=== PATIENT | female | born 1945 | race Caucasian/White ===

== ENCOUNTER → 2021-10-13 15:02 | Outpatient (CLI) | payer MEDICARE, SELFPAY ==
--- NOTE | 2021-10-13 15:37 | XR_ITS ---
FINAL REPORT CLINICAL HISTORY: WEIGHT LOSS, SOB, WEAKNESS COUGH, TOBACCO ABUSE FINDINGS: TWO-VIEW CHEST The heart size is normal. The mediastinum is normal. The lungs are hyperinflated consistent with COPD. There is mild scarring. There is no pneumothorax. IMPRESSION: COPD. Reviewed, Interpreted and Dictated by Jed Reeves III, MD Transcribed by June Pang Authenticated and . [facility]
[2021-10-13 16:09] LABS: Basophils # 0.1 K/mm3 (0-0.2); Basophils % 0.6 % (0.1-2.0); Eosinophils # 0.1 K/mm3 (0.0-0.4); Eosinophils % 1.2 % (0.1-12.0); Hematocrit 39.5 % (37.0-47.0); Hemoglobin 13.2 g/dL (12.2-16.2); Lymphocytes # 2.7 K/mm3 (0.7-4.5); Lymphocytes % 23.9 % (10-50); Mean Corpuscular HGB Conc 33.5 g/dL (31.8-35.4); Mean Corpuscular Hemoglobin 31.9 pg (27.0-31.2); Mean Corpuscular Volume 95.2 fl (81-99); Mean Platelet Volume 8.7 fl (7.4-10.4); Monocytes # 0.8 K/mm3 (0.1-1.0); Monocytes % 7.3 % (1.7-9.3); Neutrophils # 7.7 K/mm3 (1.8-7.8); Neutrophils % 67.1 % (37.0-80.0); Platelet Count 327 K/mm3 (142-424); Red Blood Count 4.14 M/mm3 (4.20-5.40); Red Cell Distribution Width 12.9 % (11.5-17.5); White Blood Count 11.5 K/mm3 (4.8-10.8)
[2021-10-13 16:18] LABS: Hemoglobin A1C 4.8 % (4.0-6.0)
[2021-10-13 17:00] LABS: Alanine Aminotransferase 10 U/L (12-78); Albumin Level 3.2 g/dl (3.5-5.0); Alkaline Phosphatase 78 U/L (38-126); Anion Gap 12.2 mEq/L (5-15); Aspartate Amino Transferase 23 U/L (14-36); Bilirubin,Total 0.6 mg/dl (0.2-1.3); Blood Urea Nitrogen 15 mg/dl (7-17); Carbon Dioxide 27 mmol/L (22.0-30.0); Chloride 99 mmol/L (98-107); Estimated Glomerular Filt Rate 70 ml/min (>60); GFR (African American) 85 ML/MIN (>60); Globulin 3.3 g/dL (1.3-3.2); Glucose 94 mg/dl (74-100); Potassium 4.2 mmoL/L (3.5-5.1); Sodium 134 mmol/L (136-145); Total Protein,Serum 6.5 g/dl (6.3-8.2)
[2021-10-13 17:06] LABS: C-Reactive Protein 34.8 mg/L (0-4)
[2021-10-13 17:07] LABS: D-Dimer 0.95 ug/mL (0.0-0.5)
[2021-10-13 17:31] LABS: Thyroid Stimulating Hormone 1.33 uIU/mL (0.465-4.68)
== END ==
LOC: LAB 15:09
PROVIDERS: PCP Nurse Practitioner Family; Visit Provider Family Medicine
DX: R06.02 Shortness of breath (principal); R05.9 Cough, unspecified; R63.4 Abnormal weight loss; R53.1 Weakness; Z72.0 Tobacco use; Z79.899 Other long term (current) drug therapy
CPT/HCPCS: 36415; 71046; 80053; 83036; 84443; 85025; 85378; 86140

== ENCOUNTER 2021-10-14 15:27 | Emergency (ER) | payer MEDICARE, SELFPAY ==
[2021-10-14] VITALS (7 sets, daily range): BP systolic 107–183; BP diastolic 70–91; PULSE 76–85; RESP 16–23; TEMP 36.6–37.1; O2SAT 95–98; BMI 18.6
[2021-10-14 16:22] LABS: Basophils % 0.3 % (0.1-2.0); Eosinophils # 0.1 K/mm3 (0.0-0.4); Eosinophils % 0.6 % (0.1-12.0); Hematocrit 37.2 % (37.0-47.0); Hemoglobin 12.7 g/dL (12.2-16.2); Lymphocytes # 2.5 K/mm3 (0.7-4.5); Lymphocytes % 25.2 % (10-50); Mean Corpuscular HGB Conc 34.3 g/dL (31.8-35.4); Mean Corpuscular Hemoglobin 32.6 pg (27.0-31.2); Mean Corpuscular Volume 95.2 fl (81-99); Mean Platelet Volume 8.5 fl (7.4-10.4); Monocytes # 0.7 K/mm3 (0.1-1.0); Monocytes % 6.5 % (1.7-9.3); Neutrophils # 6.7 K/mm3 (1.8-7.8); Neutrophils % 67.3 % (37.0-80.0); Platelet Count 318 K/mm3 (142-424); Red Blood Count 3.91 M/mm3 (4.20-5.40); Red Cell Distribution Width 12.6 % (11.5-17.5)
--- NOTE | 2021-10-14 16:25 | HMH.EDGENADL ---
ED Disposition Clinical Impression: Mucus plugging of bronchi Pneumonia Qualifiers: Pneumonia type: due to unspecified organism Laterality: left Lung location: lower lobe of lung Qualified Code(s): J18.9 - Pneumonia, unspecified organism COPD (chronic obstructive pulmonary disease) Qualifiers: COPD type: emphysema Emphysema type: unspecified Qualified Code(s): J43.9 - Emphysema, unspecified Disposition: Home, Self-Care Condition on Discharge: Good Instructions: DI for Chronic Obstructive Pulmonary Disease, DI for Pneumonia -- Adult Additional Instructions: Follow-up with primary care provider next week in the office. Additional instructions for PNEUMONIA: Take antibiotics as prescribed. See your physician as soon as possible for further evaluation. Return immediately if you have an uncontrollable fever greater than 102 degrees, difficulty breathing or shortness of breath, persistent vomiting, or severe chest pain. Prescriptions: levoFLOXacin [Levaquin 500mg tab] 500 mg PO DAILY #9 tab Transmission Status: Pending to [id number] Referrals: Wayne Polanco MD [Primary Care Provider] - - Critical Care Critical Care Time: No Attestation: On 10/14/21, the high probability of a clinically significant, sudden or life threatening deterioration of the following system(s) required my full and direct attention, intervention and personal management. The time I documented below is in addition to time spent performing reported procedures but includes the following listed in this critical care notation. Medical Decision Making - Medical Records Medical records reviewed: Yes: I reviewed the patient's medical records. MR Comment: Reviewed outpatient chest x-ray result, interpreted as COPD. - Chirag Inquiry Pt receiving controlled substance: No Vital Signs: 10/14/21 15:30 10/14/21 16:00 10/14/21 16:31 Temperature 98.7 F Temperature Source Oral Pulse Rate 79 85 Pulse Rate [Radial] 84 Respiratory Rate 20 20 23 Blood Pressure 107/70 L 161/85 H Blood Pressure [Right Arm] 143/75 H Blood Pressure Mean 82 110 Blood Pressure Mean [Right Arm] 97 Blood Pressure Position [Right Arm] Sitting 02 Sat by Pulse Oximetry 98 96 95 Oxygen Delivery Method Room Air Room Air Room Air 10/14/21 17:15 10/14/21 17:30 10/14/21 18:00 Temperature Temperature Source Pulse Rate 78 76 77 Pulse Rate [Radial] Respiratory Rate 23 22 23 Blood Pressure 166/86 H 168/86 H 183/91 H Blood Pressure [Right Arm] Blood Pressure Mean 106 Blood Pressure Mean [Right Arm] Blood Pressure Position [Right Arm] 02 Sat by Pulse Oximetry 97 98 96 Oxygen Delivery Method - Lab Data Lab Results 10/14/21 16:05: WBC 10.0, RBC 3.91 L, Hgb 12.7, Hct 37.2, MCV 95.2, MCH 32.6 H, MCHC 34.3, RDW 12.6, Plt Count 318, MPV 8.5, Neut % (Auto) 67.3, Lymph % (Auto) 25.2, [place] % (Auto) 6.5, Eos % (Auto) 0.6, Baso % (Auto) 0.3, Neut # (Auto) 6.7, Lymph # (Auto) 2.5, [place] # (Auto) 0.7, Eos # (Auto) 0.1, Baso # (Auto) 0.0 10/14/21 16:05: Sodium 132 L, Potassium 3.7, Chloride 98, Carbon Dioxide 28, Anion Gap 9.7, BUN 16, Creatinine 0.90, Estimated Creat Clear 40, Estimated GFR 61, Est GFR ( Amer) 74, Glucose 108 H, Calcium 8.9, Total Bilirubin 0.7, AST 23, ALT 12, Alkaline Phosphatase 83, Troponin I < 0.01, Total Protein 7.0, Albumin 3.4 L, Globulin 3.6 H, Albumin/Globulin Ratio 0.9 L 10/14/21 16:05: NT-Pro-B Natriuret Pep 881 H Result diagrams: 10/14/21 16:05 10/14/21 16:05 Orders (Tests/Meds): ED MEDICATIONS Discontinued Medications Generic Name Dose Route Start Last Admin Trade Name Freq PRN Reason Stop Dose Admin Diphenhydramine HCl 25 mg 10/14/21 16:40 10/14/21 16:47 Diphenhydramine 50mg/Ml Vial IV 10/14/21 16:41 25 mg ONCE ONE Administration Iopamidol 70 ml 10/14/21 17:04 10/14/21 17:05 Iopamidol-370 (76%);100ml Bottle IV 10/14/21 17:05 70 ml ONCE ONE Administration Me
--- NOTE | 2021-10-14 16:27 | CT_ITS ---
PROCEDURE INFORMATION: Exam: CTA Chest With Contrast Exam date and time: 10/14/2021 4:29 PM Age: 76 years old Clinical indication: Shortness of breath; Additional info: SOB TECHNIQUE: Imaging protocol: Computed tomographic angiography of the chest with contrast. 3D rendering (Not supervised by radiologist): MIP and/or 3D reconstructed images were created by the technologist. Radiation optimization: All CT scans at this facility use at least one of these dose optimization techniques: automated exposure control; mA and/or kV adjustment per patient size (includes targeted exams where dose is matched to clinical indication); or iterative reconstruction. Contrast material: ISOVUE 370; Contrast volume: 70 ml; Contrast route: INTRAVENOUS (IV); COMPARISON: CR XR CHEST 2V 10/13/2021 3:44 PM FINDINGS: Pulmonary arteries: Pulmonary arteries normal in course and caliber. No pulmonary emboli. Aorta: The aorta demonstrates mild atherosclerotic calcification. No acute pathology in the aorta. Trachea: Remainder of the airways are patent. Lungs: There are multiple punctate pulmonary parenchymal calcifications, consistent with remote granulomatous organism exposure. Severe centrilobular emphysematous changes are present. COPD related lung changes. Multi segmental mucoid impaction in the bilateral lower lobe proximal through distal segmental bronchi, worse in the left lower lobe. Bilateral segmental bronchial wall thickening. Patchy and tree-in-bud airspace opacities in the left lower lobe. Remainder of the lungs are clear. No suspicious pulmonary nodules. Pleural spaces: Pleural calcification in the left lung base. No pleural effusion or pneumothorax. Heart: There is calcification of the aortic valve annulus. There is mild atherosclerotic calcification of the coronary arteries. Heart is of normal size and morphology. No pericardial thickening or effusion. Lymph nodes: Unremarkable. No enlarged lymph nodes. Diaphragm: A small hiatal hernia is present. Spleen: The spleen demonstrates punctate calcifications, consistent with remote granulomatous organism exposure. Intraperitoneal space: The visualized intra-abdominal structures demonstrate no acute findings. Bones/joints: Right 11th rib osteotomy or congenital defect. No acute skeletal pathology. Severe multilevel degenerative changes of the spine, as manifested by multilevel anterior osteophytes and multilevel decrease in intervertebral disc space. Soft tissues: No acute body wall soft tissue findings. IMPRESSION: 1. No pulmonary emboli. 2. Bilateral severe multi segmental mucoid impaction in the lower lobe segmental bronchi, worse on the left side. There is associated moderate left lower lobe pneumonia. Aspiration pneumonia should be entertained. 3. Severe COPD/emphysema. 4. Incidental findings as above.
[2021-10-14 16:32] LABS: Alanine Aminotransferase 12 U/L (12-78); Albumin Level 3.4 g/dl (3.5-5.0); Albumin/Globulin Ratio 0.9 (1.1-1.8); Alkaline Phosphatase 83 U/L (38-126); Anion Gap 9.7 mEq/L (5-15); Aspartate Amino Transferase 23 U/L (14-36); Bilirubin,Total 0.7 mg/dl (0.2-1.3); Blood Urea Nitrogen 16 mg/dl (7-17); Calcium 8.9 mg/dl (8.4-10.2); Carbon Dioxide 28 mmol/L (22.0-30.0); Chloride 98 mmol/L (98-107); Creatinine Clearance Estimated 40 mL/min (50-200); Estimated Glomerular Filt Rate 61 ml/min (>60); GFR (African American) 74 ML/MIN (>60); Globulin 3.6 g/dL (1.3-3.2); Glucose 108 mg/dl (74-100); Potassium 3.7 mmoL/L (3.5-5.1); Sodium 132 mmol/L (136-145)
--- NOTE | 2021-10-14 16:43 | ECG_ITS ---
APPROVED REPORT Exam: Resting ECG HR:78 bpm ECG Measurements Heart Rate 78 AXES OK 147 P 87 QRSd 85 QRS -45 QT 383 T 62 QTc 417 Conclusion SINUS RHYTHM Bi atrial abnormality LAFB Late r wave progression ABNORMAL ECG UNCONFIRMED REPORT Electronically signed by : Efren Connor MD 10/15/2021 21:39:48
--- NOTE | 2021-10-14 16:47 | PC.NURSE ---
Rounded on patient; obtained on EKG and repositioned patient in bed so that she was more comfortable
[2021-10-14 16:49] LABS: Troponin I < 0.01 ng/ml (0.00-0.034)
[2021-10-14 16:56] LABS: NT Pro Brain Natriuretic Pep. 881 pg/mL (0-125)
== END 2021-10-14 18:40 | disposition home or self-care (01) ==
PROVIDERS: Emergency Provider Emergency Medicine; PCP Family Medicine
DX: J18.9 Pneumonia, unspecified organism (principal); J43.9 Emphysema, unspecified; R79.1 Abnormal coagulation profile; R53.1 Weakness; R94.31 Abnormal electrocardiogram [ECG] [EKG]; F17.210 Nicotine dependence, cigarettes, uncomplicated; Z79.51 Long term (current) use of inhaled steroids; Z91.041 Radiographic dye allergy status; Z91.013 Allergy to seafood
CPT/HCPCS: 71275; 80053; 83880; 84484; 85025; 93005; 96374; 96375; 99285; Q9967

== ENCOUNTER → 2022-01-17 12:41 | Outpatient (CLI) | payer MEDICARE, SELFPAY ==
[2022-01-17 13:30] VITALS: PULSE 61; PULSE 66
--- NOTE | 2022-01-17 14:27 | CT_ITS ---
FINAL REPORT TECHNIQUE: Axial images were obtained from the lung apex to the mid abdomen by computed tomography. Coronal reformatted images were obtained. This study was performed with techniques to keep radiation doses as low as reasonably achievable, (ALARA). Individualized dose reduction techniques using automated exposure control or adjustment of mA and/or kV according to the patient''s size were employed. CLINICAL HISTORY: PNM F/U COMPARISON: 10/14/2021 FINDINGS: There is no axillary adenopathy. There is no hilar or mediastinal adenopathy. Heart size is normal. There are moderate coronary artery calcifications. There is no pericardial or pleural effusion. Limited images of the upper abdomen are unremarkable. On the lung window images, there are severe changes of emphysema with mild pulmonary scarring. There are several calcified granulomas. There has been interval resolution of the left lung base opacities. No new pulmonary abnormality is identified. IMPRESSION: Interval resolution of left lung base opacities. No new pulmonary abnormality is identified. Reviewed, Interpreted and Dictated by Jed Reeves III, MD Transcribed by Dina Mistry Authenticated and [facility]
== END ==
LOC: RT 12:42
PROVIDERS: PCP Family Medicine; Visit Provider Internal Medicine Pulmonary Disease
DX: J47.9 Bronchiectasis, uncomplicated (principal)
CPT/HCPCS: 71250; 94060; 94618; 94640; 94726; 94729

== ENCOUNTER 2022-05-11 09:54 | Emergency (ER) | payer MEDICARE, SELFPAY ==
[2022-05-11] VITALS (24 sets, daily range): BP systolic 0–165; BP diastolic 0–98; PULSE 0–160; RESP 0–33; TEMP -17.7–36.4; O2SAT 0–92; BMI 18.3
--- NOTE | 2022-05-11 10:04 | ECG_ITS ---
APPROVED REPORT Exam: Resting ECG HR:137 bpm ECG Measurements Heart Rate 137 AXES [place] 124 P 88 QRSd 82 QRS -48 QT 329 T 75 QTc 409 Conclusion SINUS TACHYCARDIA POSSIBLE RIGHT VENTRICULAR CONDUCTION DELAY [RSR (QR) IN V1/V2] LEFT ANTERIOR FASCICULAR BLOCK [QRS AXIS <= -45, QR IN I, RS IN II] NONSPECIFIC ST & T-WAVE ABNORMALITY ABNORMAL ECG UNCONFIRMED REPORT Electronically signed by : Efren Connor MD 05/12/2022 08:58:49
--- NOTE | 2022-05-11 10:07 | HMH.EDGENADL ---
Discharge Plan Disposition Patient Disposition: Condition: Critical Date/Time: 05/11/22 02:12 Clinical Impressions Clinical Impression: Septic shock, Pneumonia, Acute respiratory failure with hypoxia, JOSE (acute kidney injury) Discharge ED Provider: Cyril Aranda General Adult HPI General Chief complaint: Shortness of Breath/Dyspnea Stated complaint: SOB Time Seen by Provider: 05/11/22 09:55 History of Present Illness HPI narrative: The patient is brought in by ambulance. She complains of shortness of breath for couple of days, worse today. She has a cough producing clear sputum. She had a fever 1 day. She has chest pain in the center and left side of her chest. She has had small amount of vomiting, no diarrhea, no abdominal pain. She says her daughter, with whom she lives, was sick over the weekend, no specific diagnosis. Patient has COPD, she is not on oxygen at home. She does use a nebulizer. She is a former smoker. EMS reports that the patient's pulse ox was in the 60s on room air on their arrival. They gave her a DuoNeb treatment and put her on oxygen and she was in the 90s afterwards. She says she feels somewhat better on oxygen. Related Data Home Medications Medication Instructions Recorded Confirmed albuterol sulfate 90 mcg/actuation 2 puff inhalation Q6H PRN 11/01/21 01/17/22 aerosol inhaler (Ventolin HFA) lisinopril 40 mg tablet 40 mg PO DAILY 11/01/21 01/17/22 propranolol 40 mg tablet 40 mg PO ONCE 11/01/21 01/17/22 Previous Rx's Medication Instructions Recorded albuterol sulfate 90 mcg/actuation 2 inh inhalation QID PRN shortness 11/01/21 aerosol inhaler of breath or wheezing 90 days #8.5 grams ipratropium 0.5 mg-albuterol 3 mg 3 ml inhalation QID PRN shortness 11/01/21 (2.5 mg base)/3 mL nebulization of breath or wheezing 90 days #360 soln mL umeclidinium 62.5 mcg-vilanterol 1 inh inhalation DAILY 90 days 01/17/22 25 mcg/actuation powdr for #180 ea inhalation (Anoro Ellipta) Allergies Allergy/AdvReac Type Severity Reaction Status Date / Time Iodinated Contrast Media Allergy Unknown Unknown Verified 05/11/22 13:09 [IODINATED CONTRAST MEDIA - allergy IV DYE] reaction shellfish derived Allergy Unknown S-DROP IN Verified 01/17/22 15:34 [From SHELLFISH (FOOD/DRUG)] B/P [facility] Disclaimer: The information contained in this section may have been updated after the patient was seen, as this information can be updated by other users. Medical History Acute respiratory failure with hypoxia Atypical pneumonia COPD mixed type Dyspnea on exertion History of 2019 novel coronavirus disease (COVID-19) Mucus plugging of bronchi On mechanically assisted ventilation Pneumonia Pneumonia Pulmonary emphysema Septic shock Smoking greater than 30 pack years Surgical History (Updated 01/17/22 @ 15:39 by Kavitha Guzman) History of kidney donation Family History Father Lung cancer Mother Lung cancer Social History Smoking Status: Former smoker smoking status stop date: 10/2021 alcohol intake: never current occupational status: retired Travel in the last 8 weeks: None ROS Obtained: Yes Systems reviewed as appropriate & no additional complaints except as documented Constitutional Constitutional: Reports fever(s) and Denies weakness Cardiovascular Cardiovascular: Reports chest pain Respiratory Respiratory: Reports shortness of breath and Reports cough Gastrointestinal Gastrointestingal: Reports vomiting; Denies abdominal pain, constipation or diarrhea Genitourinary Female Genitourinary: Denies difficulty voiding, Denies dysuria and Denies flank pain Musculoskeletal Musculoskeletal: Denies numbness Neurologic Neurologic: Denies numbness and Denies weakness Physical Exam General General appearance: alert and in distress (dyspneic, mildly labore
--- NOTE | 2022-05-11 10:07 | PC.NURSE ---
called RT for abg and suctioning
--- NOTE | 2022-05-11 10:11 | XR_ITS ---
FINAL REPORT CLINICAL HISTORY: SOA, Lt sided CP x 2 days. Hx of COPD, former smoker. COMPARISON: 10/13/2021 FINDINGS: A single PA view of the chest was obtained. The cardiac and mediastinal silhouettes are within normal limits. There is been interval development of airspace disease in the left lung which is most consistent with pneumonia. There is a new a mass like opacity in the right hilar region. This could also be infectious or inflammatory but a mass is not excluded. There is underlying emphysema. There is no effusion or pneumothorax. No acute osseous abnormality is identified. IMPRESSION: 1. New left lung pneumonia. Recommend follow-up to resolution. 2. New right hilar mass like opacity, could also be pneumonia but mass or lymphadenopathy is not excluded. Consider chest CT. Reviewed, Interpreted and Dictated by Rosio Bermudez MD Transcribed by Dina Mistry Authenticated and [facility]
[2022-05-11 10:21] LABS: Basophils % 0.8 % (0.1-2.0); Eosinophils % 0.1 % (0.1-12.0); Hematocrit 46.1 % (37.0-47.0); Hemoglobin 15.5 g/dL (12.2-16.2); Lymphocytes # 0.7 K/mm3 (0.7-4.5); Lymphocytes % 14.8 % (10-50); Mean Corpuscular HGB Conc 33.7 g/dL (31.8-35.4); Mean Corpuscular Hemoglobin 32.2 pg (27.0-31.2); Mean Corpuscular Volume 95.6 fl (81-99); Mean Platelet Volume 10.3 fl (7.4-10.4); Monocytes # 0.2 K/mm3 (0.1-1.0); Monocytes % 4.3 % (1.7-9.3); Neutrophils # 3.9 K/mm3 (1.8-7.8); Platelet Count 273 K/mm3 (142-424); Red Blood Count 4.83 M/mm3 (4.20-5.40); Red Cell Distribution Width 13.8 % (11.5-17.5); White Blood Count 4.9 K/mm3 (4.8-10.8)
--- NOTE | 2022-05-11 10:25 | PC.NURSE ---
RT at BS
[2022-05-11 10:35] LABS: Coronavirus 19, PCR Not Detected (NotDetected); Influenza A, PCR Not Detected (NotDetected); Influenza B, PCR Not Detected (NotDetected)
[2022-05-11 10:36] LABS: Chloride 103 mmol/L (98-107); Potassium 4.2 mmoL/L (3.5-5.1); Sodium 142 mmol/L (136-145)
[2022-05-11 10:38] LABS: ABG Base Excess -14.7 mmol/L (-2.4-2.3); ABG HCO3 14.5 mmhg (22.0-26.0); ABG Oxygen Saturation 82 % (90-100); ABG PCO2 44.9 mmhg (35.0-45.0); ABG PO2 59.5 mmhg (80-100); ABG TCO2 15.9 mmhg (23-27)
--- NOTE | 2022-05-11 10:38 | PC.NURSE ---
respiratory notified to place pt on bi-pap
[2022-05-11 10:39] LABS: Alanine Aminotransferase 27 U/L (12-78); Albumin Level 3.6 g/dl (3.5-5.0); Albumin/Globulin Ratio 0.9 (1.1-1.8); Alkaline Phosphatase 92 U/L (38-126); Anion Gap 23.2 mEq/L (5-15); Aspartate Amino Transferase 38 U/L (14-36); Bilirubin,Total 2.1 mg/dl (0.2-1.3); Blood Urea Nitrogen 57 mg/dl (7-17); Calcium 9.1 mg/dl (8.4-10.2); Carbon Dioxide 20 mmol/L (22.0-30.0); Creatinine Clearance Estimated 12 mL/min (50-200); Estimated Glomerular Filt Rate 14 ml/min (>60); GFR (African American) 17 ML/MIN (>60); Globulin 4.1 g/dL (1.3-3.2); Glucose 56 mg/dl (74-100); Total Protein,Serum 7.7 g/dl (6.3-8.2)
[2022-05-11 10:39] LABS: Oxygen 100 %; Source R BRACHIAL
[2022-05-11 10:41] LABS: ABG PH 7.13 mmol/L (7.35-7.45)
--- NOTE | 2022-05-11 10:41 | PC.NURSE ---
Yaz from respiratory called pH 7.13 CO2-44.9 Lactic-7.5 Pari from lab called Lactic Acid 4.5 Both were repeated and confirmed.
[2022-05-11 10:42] LABS: Lactic Acid 4.5 mmol/L (0.7-2.1)
--- NOTE | 2022-05-11 10:43 | PC.NURSE ---
RT gave abg results to PIPPA GERARD at this time, PIPPA GERARD states to RT to place pt on vapotherm
--- NOTE | 2022-05-11 10:44 | PC.NURSE ---
RT at bedside. Daughter at bedside.
[2022-05-11 10:48] LABS: NT Pro Brain Natriuretic Pep. 12700 pg/mL (0-125)
--- NOTE | 2022-05-11 10:48 | PC.NURSE ---
notified dr. clemons's office of consult on pt per ER MD request.
--- NOTE | 2022-05-11 10:57 | EXP.PULM.CON ---
History of Present Illness History of present illness: 76-year-old female current smoker greater than [id number] smoking history moderate COPD on triple inhaler therapy was presented hospital with worsening respiratory status found to be hypoxic needing high flow Pulmonary was consulted. [facility] Disclaimer: The information contained in this section may have been updated after the patient was seen, as this information can be updated by other users. Medical History Acute respiratory failure with hypoxia Atypical pneumonia COPD mixed type Dyspnea on exertion History of 2019 novel coronavirus disease (COVID-19) Mucus plugging of bronchi On mechanically assisted ventilation Pneumonia Pneumonia Pulmonary emphysema Septic shock Smoking greater than 30 pack years Surgical History (Updated 01/17/22 @ 15:39 by Kavitha Guzman) History of kidney donation Family History Father Lung cancer Mother Lung cancer Social History Smoking Status: Former smoker smoking status stop date: 10/2021 alcohol intake: never current occupational status: retired Travel in the last 8 weeks: None Review of Systems Review of Systems Review of systems:: unable to obtain Review of systems (narrative): Patient obtunded on BiPAP, interval intubated and sedated Pulmonology Exam Inpatient Vital signs and Labs for Last 24 Hours: Temp Pulse Resp BP Pulse Ox 97.6 F 134 H 21 141/83 H 90 L 05/11/22 10:08 05/11/22 10:08 05/11/22 10:08 05/11/22 10:08 05/11/22 10:08 Laboratory Results - last 24 hr 05/11/22 10:00: Lactate 4.5 H 05/11/22 10:00: WBC 4.9, RBC 4.83, Hgb 15.5, Hct 46.1, MCV 95.6, MCH 32.2 H, MCHC 33.7, RDW 13.8, Plt Count 273, MPV 10.3, Neut % (Auto) 80.0, Lymph % (Auto) 14.8, [place] % (Auto) 4.3, Eos % (Auto) 0.1, Baso % (Auto) 0.8, Neut # (Auto) 3.9, Lymph # (Auto) 0.7, [place] # (Auto) 0.2, Eos # (Auto) 0.0, Baso # (Auto) 0.0 05/11/22 10:00: Sodium 142, Potassium 4.2, Chloride 103, Carbon Dioxide 20 L, Anion Gap 23.2 H, BUN 57 H, Creatinine 3.20 H, Estimated Creat Clear 12, Estimated GFR 14 L*, Est GFR ( Amer) 17 L*, Glucose 56 L, Calcium 9.1, Total Bilirubin 2.1 H, AST 38 H, ALT 27, Alkaline Phosphatase 92, Total Protein 7.7, Albumin 3.6, Globulin 4.1 H, Albumin/Globulin Ratio 0.9 L 05/11/22 10:15: Specimen Source R brachial, O2 % 100, ABG pH 7.13 L*, ABG pCO2 44.9, ABG pO2 59.5 L, ABG HCO3 14.5 L, ABG Total CO2 15.9 L, ABG O2 Saturation 82 L*, ABG Base Excess -14.7 L I & O for Labs for Last 24 Hours: Intake & Output 05/08/22 05/09/22 05/10/22 05/11/22 23:59 23:59 23:59 23:59 Weight 110 lb Constitutional: Present severe distress Comment:: Intubated and Sedated Head: Present normocephalic and atraumatic ENT: Present normal exam Neck: Present normal inspection and trachea midline Respiratory: Present patient mechanically ventilated, rhonchi and wheezes Cardiac: Present S1/S2 and Tachycardia GI: Present soft; Absent distention or tenderness Rectal (female): Present deferred (female): Present deferred Skin: Present intact, cyanosis, dry, pallor and mottling Neuro: Absent alert, awake or oriented x 3 Comment:: Intubated and sedated Extremities: Present cyanosis; Absent normal inspection, edema or clubbing Psychiatric: Present unable to assess Meds Home Medications and Allergies Home Medications Medication Instructions Recorded Confirmed Type albuterol sulfate 90 mcg/actuation 2 inh inhalation QID PRN shortness 11/01/21 01/17/22 Rx aerosol inhaler of breath or wheezing 90 days #8.5 grams albuterol sulfate 90 mcg/actuation 2 puff inhalation Q6H PRN 11/01/21 01/17/22 History aerosol inhaler (Ventolin HFA) ipratropium 0.5 mg-albuterol 3 mg 3 ml inhalation QID PRN shortness 11/01/21 01/17/22 Rx (2.5 mg base)/3 mL nebulization of breath or wheezing 90 days #360 soln mL lisinopril 40 mg tablet
--- NOTE | 2022-05-11 10:59 | ECG_ITS ---
APPROVED REPORT Exam: Resting ECG HR:117 bpm ECG Measurements Heart Rate 117 AXES [place] 99 P 81 QRSd 86 QRS -52 QT 333 T 100 QTc 402 Conclusion SINUS TACHYCARDIA WITH SHORT CO INTERVAL WITH OCCASIONAL ECTOPIC PREMATURE COMPLEXES POSSIBLE RIGHT ATRIAL ENLARGEMENT [0.25mV P-WAVE] POSSIBLE RIGHT VENTRICULAR CONDUCTION DELAY [RSR (QR) IN V1/V2] LEFT ANTERIOR FASCICULAR BLOCK [QRS AXIS <= -45, QR IN I, RS IN II] ST DEVIATION AND MODERATE T-WAVE ABNORMALITY, CONSIDER LATERAL ISCHEMIA [-0.1+ mV T-WAVE IN I/aVL/V5/V6] ABNORMAL ECG UNCONFIRMED REPORT Electronically signed by : Efren Connor MD 05/12/2022 08:58:34
--- NOTE | 2022-05-11 11:07 | PC.NURSE ---
RT switching pt to bipap r/t no improvement on vapotherm
[2022-05-11 11:08] LABS: Troponin I < 0.01 ng/ml (0.00-0.034)
--- NOTE | 2022-05-11 11:08 | PC.NURSE ---
notified of worsening condition. Pt currently on Vapotherm at FIO2 100% with NRB. O2 sats 74%. VO for BiPAP. RT at bedside.
--- NOTE | 2022-05-11 11:14 | PC.NURSE ---
esperanzarn notified ER of pt bp 92/74, placing ivf on pressure bag
--- NOTE | 2022-05-11 11:20 | PC.NURSE ---
spoke with daughter, per pt request for code status. [facility] code status established and form given to
--- NOTE | 2022-05-11 11:24 | PC.NURSE ---
1122-pulmonology at the bedside to evaluate pt 1124- ER MD and pulmonology speaking with daughter about plan of care. daughter states she spoke with the son and they wish for pt to be a full code. verbal orders for intubation set up at this time. 1126- verbal order for 2 amp of bicarb at this time. 1132-20g Iv placed in the L AC 1140- verbal order for 65roc & 5versed for intubation 1140- 165/40 133HR 33RR 97.9T 1144- successful intubation 7.5 ET; 24 @ teeth 1146- rad at the bedside for post placement film
--- NOTE | 2022-05-11 11:25 | PC.NURSE ---
dr. clemons as BS
--- NOTE | 2022-05-11 11:43 | XR_ITS ---
FINAL REPORT CLINICAL HISTORY: post intubation FINDINGS: A portable view of the chest was obtained. Comparison is made to a prior exam dated 05/11/2022. There has been interval placement of an ET tube with the tip in the mid thoracic trachea. Cardiac and mediastinal silhouettes are within normal limits. There has been no change in, left greater than right, lung opacities. There is no pleural effusion or pneumothorax. IMPRESSION: Interval placement of ET tube with tip in the midthoracic trachea. No change in lung opacities, left greater than right. Reviewed, Interpreted and Dictated by Rosio Bermudez MD Transcribed by Dina Mistry Authenticated and [facility]
--- NOTE | 2022-05-11 11:44 | PC.NURSE ---
Radiology in room to do chest xray for tube placement.
--- NOTE | 2022-05-11 11:44 | PC.NURSE ---
rad at BS for portable xray
[2022-05-11 12:07] LABS: ABG Base Excess -9.5 mmol/L (-2.4-2.3); ABG HCO3 20.7 mmhg (22.0-26.0); ABG Oxygen Saturation 99 % (90-100); ABG PO2 370.8 mmhg (80-100); ABG TCO2 22.9 mmhg (23-27)
[2022-05-11 12:08] LABS: Oxygen 100 %; PEEP 14; Tidal Volume 400; Vent Rate 20
[2022-05-11 12:09] LABS: Allen's Test Patient Unable; Source Right Radial
[2022-05-11 12:11] LABS: ABG PCO2 72.8 mmhg (35.0-45.0); ABG PH 7.07 mmol/L (7.35-7.45)
--- NOTE | 2022-05-11 12:11 | PC.NURSE ---
Keila from Respiratory called critical on patient. pH 7.07 PCO2-72.8 PO2-370.8
--- NOTE | 2022-05-11 12:19 | PC.NURSE ---
VENT SETTINGS ADJUSTED PER RESPIRATORY PER DR. JULITA BUCK
--- NOTE | 2022-05-11 12:20 | PC.NURSE ---
DR RIBEIRO NOTIFIED OF BLOOD PRESSURE, VERBAL ORDERS FOR LEVOPHED DRIP
--- NOTE | 2022-05-11 12:40 | PC.NURSE ---
PIPPA GERARD at reassessing pt
--- NOTE | 2022-05-11 12:49 | ECG_ITS ---
APPROVED REPORT Exam: Resting ECG HR:161 bpm ECG Measurements Heart Rate 161 AXES QRSd 75 QRS -76 QT 319 T 109 QTc 408 Conclusion ATRIAL FLUTTER/TACHYCARDIA WITH RAPID VENTRICULAR RESPONSE LOW QRS VOLTAGE [QRS DEFLECTION < 0.5/1.0 mV IN LIMB/CHEST LEADS] PATTERN CONSISTENT WITH PULMONARY DISEASE POSSIBLE RIGHT VENTRICULAR CONDUCTION DELAY [RSR (QR) IN V1/V2] INFERIOR MYOCARDIAL INFARCTION , PROBABLY OLD [40+ ms Q WAVE AND/OR ST/T ABNORMALITY IN II/aVF] ST DEVIATION AND MODERATE T-WAVE ABNORMALITY, CONSIDER LATERAL ISCHEMIA [-0.1+ mV T-WAVE IN I/aVL/V5/V6] CRITICAL TEST RESULT UNCONFIRMED REPORT Electronically signed by : Efren Connor MD 05/12/2022 08:58:10
--- NOTE | 2022-05-11 12:53 | PC.NURSE ---
1247 2 AMPS BICARB GIVEN AT THIS TIME PER VERBAL MD ORDER 1249 REPEAT EKG AT THIS TIME, DR RIBEIRO UPDATED FAMILY AT THIS TIME
--- NOTE | 2022-05-11 12:55 | PC.NURSE ---
DR RIBEIRO SPEAKING WITH DR CANCINO
--- NOTE | 2022-05-11 13:00 | PC.NURSE ---
DR BAUTISTA PAGED AT THIS TIME
--- NOTE | 2022-05-11 13:03 | PC.NURSE ---
DR RIBEIRO SPEAKING WITH DR BAUTISTA
--- NOTE | 2022-05-11 13:08 | PC.NURSE ---
paging dr cheatham for arterial line
--- NOTE | 2022-05-11 13:18 | PC.NURSE ---
Dr Mendoza office called back to say Keila from [facility] is coming down to do A-line.
--- NOTE | 2022-05-11 13:45 | PC.NURSE ---
Called for Echo on patient.
--- NOTE | 2022-05-11 13:48 | PC.NURSE ---
Addendum entered by Josephine Kwan RN 05/11/22 13:48: dr. soliman at placing central line Original Note: dr. varner (hospitalist) at BS
--- NOTE | 2022-05-11 13:50 | EXP.PHA.CONS ---
Pharmacy Consult Date: 05/11/22 Time: 13:51 Referring provider: DR. SNYDER Reason for Consult:: VANCOMYCIN DOSING Allergies Allergy/AdvReac Type Severity Reaction Status Date / Time Iodinated Contrast Media Allergy Unknown Unknown Verified 05/11/22 13:09 [IODINATED CONTRAST MEDIA - allergy IV DYE] reaction shellfish derived Allergy Unknown S-DROP IN Verified 01/17/22 15:34 [From SHELLFISH (FOOD/DRUG)] B/P Home Medications Medication Instructions Recorded Confirmed Type albuterol sulfate 90 mcg/actuation 2 inh inhalation QID PRN shortness 11/01/21 01/17/22 Rx aerosol inhaler of breath or wheezing 90 days #8.5 grams albuterol sulfate 90 mcg/actuation 2 puff inhalation Q6H PRN 11/01/21 01/17/22 History aerosol inhaler (Ventolin HFA) ipratropium 0.5 mg-albuterol 3 mg 3 ml inhalation QID PRN shortness 11/01/21 01/17/22 Rx (2.5 mg base)/3 mL nebulization of breath or wheezing 90 days #360 soln mL lisinopril 40 mg tablet 40 mg PO DAILY 11/01/21 01/17/22 History propranolol 40 mg tablet 40 mg PO ONCE 11/01/21 01/17/22 History umeclidinium 62.5 mcg-vilanterol 1 inh inhalation DAILY 90 days 01/17/22 01/17/22 Rx 25 mcg/actuation powdr for #180 ea inhalation (Anoro Ellipta) New Prescriptions to Start Prescriptions: Height: 1.65 m Weight: 49.895 kg Laboratory Results:: Laboratory Results - last 24 hr 05/11/22 10:00: Lactate 4.5 H 05/11/22 10:00: Troponin I < 0.01, NT-Pro-B Natriuret Pep 88372 H 05/11/22 10:00: WBC 4.9, RBC 4.83, Hgb 15.5, Hct 46.1, MCV 95.6, MCH 32.2 H, MCHC 33.7, RDW 13.8, Plt Count 273, MPV 10.3, Neut % (Auto) 80.0, Lymph % (Auto) 14.8, [place] % (Auto) 4.3, Eos % (Auto) 0.1, Baso % (Auto) 0.8, Neut # (Auto) 3.9, Lymph # (Auto) 0.7, [place] # (Auto) 0.2, Eos # (Auto) 0.0, Baso # (Auto) 0.0 05/11/22 10:00: Sodium 142, Potassium 4.2, Chloride 103, Carbon Dioxide 20 L, Anion Gap 23.2 H, BUN 57 H, Creatinine 3.20 H, Estimated Creat Clear 12, Estimated GFR 14 L*, Est GFR ( Amer) 17 L*, Glucose 56 L, Calcium 9.1, Total Bilirubin 2.1 H, AST 38 H, ALT 27, Alkaline Phosphatase 92, Total Protein 7.7, Albumin 3.6, Globulin 4.1 H, Albumin/Globulin Ratio 0.9 L 05/11/22 10:07: SARS-CoV-2 (PCR) Not detected, Influenza A Untype (PCR) Not detected, Influenza Type B (PCR) Not detected 05/11/22 10:15: Specimen Source R brachial, O2 % 100, ABG pH 7.13 L*, ABG pCO2 44.9, ABG pO2 59.5 L, ABG HCO3 14.5 L, ABG Total CO2 15.9 L, ABG O2 Saturation 82 L*, ABG Base Excess -14.7 L 05/11/22 12:04: Specimen Source Right radial, O2 % 100, ABG pH 7.07 L*, ABG pCO2 72.8 H, ABG pO2 370.8 H, ABG HCO3 20.7 L, ABG Total CO2 22.9 L, ABG O2 Saturation 99, ABG Base Excess -9.5 L, Jaden Test Patient unable, Vent Rate 20, Tidal Volume 400, PEEP 14 Medical History: Medical History Acute respiratory failure with hypoxia Atypical pneumonia COPD mixed type Dyspnea on exertion History of 2019 novel coronavirus disease (COVID-19) Mucus plugging of bronchi On mechanically assisted ventilation Pneumonia Pneumonia Pulmonary emphysema Septic shock Smoking greater than 30 pack years Assessment and Plan Assessment and plan all Dx Assessment and Plan for all problems:: Pharmacokinetic dosing service Age: 76 yo Serum creatinine: 3.2 mg/dL Height: 65.0 Inches Weight (kg): 50 Assessment: IBW (kg): 57.00 Dosing wt(kg): 50 Estimated Creatinine clearance (ml/min): 12.2 CRCL method: Cockcroft and Gault using ibw(default). Drug selected: Vancomycin Loading dose (mg): 0 Vd (liters): 40.0 (factor used: 0.8 L/kg) Andrew (hr-1): 0.015 Half life (hrs): 46.21 Recommended dose: 1000 mg Interval: 72 hrs Infusion time (hrs): 2.0 Predicted peak (mcg/mL): 37.3 Predicted trough (mcg/mL): 13.05 Total body weight is being used for vancomycin dosing. Recommendations: With current SRC
--- NOTE | 2022-05-11 13:54 | PC.NURSE ---
care management notified of admission
--- NOTE | 2022-05-11 13:57 | XR_ITS ---
FINAL REPORT CLINICAL HISTORY: central line placement COMPARISON: 2 hours prior FINDINGS: A single PA view of the chest was obtained. ET tube is present to the midthoracic trachea. There has been interval placement of right IJ central line with the tip in the SVC. The cardiac and mediastinal silhouettes are within normal limits. There has been no change in the right greater than left opacities. There is no effusion or pneumothorax. No acute osseous abnormality is identified. IMPRESSION: No pneumothorax post central line placement. No interval change otherwise. Reviewed, Interpreted and Dictated by Rosio Bermudez MD Transcribed by Sonia Whalen Authenticated and [facility]
--- NOTE | 2022-05-11 14:03 | PC.NURSE ---
rad at BS
--- NOTE | 2022-05-11 14:03 | PC.NURSE ---
notified ER of pt needing tissue reperfusion assessment needed on pt.
--- NOTE | 2022-05-11 14:07 | PC.NURSE ---
1406-rad staff and ed staff, and dr soliman at the bedside for central line confirmation, pt converted into asystole, pulse check performed and compressions started at this time. 1407- 1mg epi given 1408- pulse check; asystole 1409- bicarb given 1410-pulse check; asystole 1410- 1mg epi given 1412- pulse check; asystole called TOD @ 1412
[2022-05-11 14:16] LABS: Reflex Lactic Add Lactic Reflex
--- NOTE | 2022-05-11 14:18 | PC.NURSE ---
1414- in conference room with PIPPA GERARD speaking with family
--- NOTE | 2022-05-11 14:22 | PC.NURSE ---
pt family at BS
--- NOTE | 2022-05-11 14:29 | PC.NURSE ---
notified parts clerk pt
--- NOTE | 2022-05-11 14:33 | PC.NURSE ---
Daughter took personal belongings of patient, rings, dentures, sweatshirt
--- NOTE | 2022-05-11 14:37 | PC.NURSE ---
[facility] notified. Per [facility], patient unable to donate. [facility] Case # [id number]. Tatianna Head.
--- NOTE | 2022-05-11 15:05 | P.OP_ITS ---
Date of procedure: 05/11/22 Pre-op Diagnosis:: Need for intravenous axis Post-op Diagnosis:: Same Procedure performed:: Placement of 7 Kinyarwanda triple-lumen right internal jugular vein Surgeon:: Jed Muniz MD Anesthesia: local Estimated blood loss (mL): 5 Clinical Note:: Patient is a 76-year-old female with COPD who presented via EMS with hypoxia, respiratory failure, septic shock with cardiovascular collapse. Upon arrival EMS noted that her oxygen saturation was in the 60s. Blood work notable for CO2 of 20, BUN 57, creatinine 3.2, glucose 56, bilirubin 2.1, AST 38, BNP 12,700. Blood gas revealed initially revealed pH of 7.13, CO2 44.9, PO2 59.5, base deficit of 14.7. Patient was intubated and mechanically ventilated. Despite intubation she had worsening acidosis on repeat blood gas. Chest x-ray revealed left lung pneumonia and findings of a new right hilar masslike opacity. She did develop significant worsening findings of septic shock and cardiovascular collapse with systolic blood pressure dropping into the 50s. She continued to show ongoing clinical deterioration. She was administered sodium bicarbonate for her significant acidosis. Patient was given multiple broad spectrum antibiotics for sepsis and started on norepinephrine and vasopressin drips in an effort to maintain blood pressure. Despite IV fluids and high-dose pressors she continued to have a systolic blood pressure of approximately 80 over palp. Surgery was contacted for central venous line placement. Operative findings:: Patient mottled, mechanically ventilated. Operative note:: Patient was positioned in Trendelenburg position. Right neck and upper chest were prepped and draped in the standard surgical fashion. Landmarks were easily identified. Local anesthetic was infiltrated superficially at the upper portion of the splitting of the sternocleidomastoid muscle. 22-gauge needle was inserted as a finder needle at this location lateral to the carotid artery. There was return of venous blood. Using this as a guide the 18-gauge needle was inserted with good return of venous blood flow. Guidewire was inserted. Both needles were removed. Small incision was made at the insertion site. Tissues were dilated. 7 Kinyarwanda triple-lumen catheter was inserted over the guidewire using Seldinger technique and secured at approximately the 12 cm claudia with silk sutures. All ports aspirated and flushed without difficulty. Clean dry sterile dressing was applied. Chest x-ray performed at the completion of the procedure unofficially revealed appropriate placement of the line without pneumothorax. Condition: critical Disposition: no change Complications:: None immediately apparent
--- NOTE | 2022-05-11 16:37 | PC.NURSE ---
family states they are going to use [facility]
--- NOTE | 2022-05-11 16:46 | PC.NURSE ---
spoke with marcus from [facility]. states they will be in route
== END 2022-05-11 18:05 | disposition expired ==
LOC: ER 13:24 → 2ND 14:12
PROVIDERS: Internal Medicine Pulmonary Disease; Emergency Provider Emergency Medicine; PCP Nurse Practitioner Family
DX: J45.909 Unspecified asthma, uncomplicated (principal); J84.9 Interstitial pulmonary disease, unspecified; A41.9 Sepsis, unspecified organism; R65.21 Severe sepsis with septic shock; J18.9 Pneumonia, unspecified organism; J96.01 Acute respiratory failure with hypoxia; Z99.11 Dependence on respirator [ventilator] status; Z20.822 Contact with and (suspected) exposure to COVID-19; R06.9 Unspecified abnormalities of breathing
CPT/HCPCS: 31500; 71045; 80053; 82803; 83605; 83880; 84484; 85025; 87040; 87070; 87077; 87186; 87205; 92950; 93005; 93306; 96361; 96365; 96366; 96375; 99291; 99292; C1751; C9803; G0390; J0456; J0696; U0003; U0005